=== PATIENT | female | born 1980 | race Caucasian/White ===

== ENCOUNTER 2017-04-30 16:42 | Emergency (ER) | payer OTHER, MEDICARE ==
[~2017-04-30] VITALS: Ht 170.2 cm; Wt 68.2 kg
[2017-04-30 16:52] VITALS: BP 128/72; PULSE 128; RESP 18; O2SAT 97
--- NOTE | 2017-04-30 17:44 | DRSVH ---
PROCEDURE: X-RAY LEFT KNEE, THREE VIEWS ([id number]) INDICATIONS: 37 year-old female with left knee pain after ground level fall yesterday. TECHNIQUE: 3 views of the knee were acquired. COMPARISON: None. FINDINGS: Bones: No fractures or dislocations. No suspicious bony lesions. Soft tissues: No joint effusion. No suspicious soft tissue calcifications. IMPRESSION: No acute bony injury to the left knee. Dictated by: Boo Cespedes M.D. on 04/30/2017 at 17:41 Approved by: Boo Cespedes M.D. on 04/30/2017 at 17:42
--- NOTE | 2017-04-30 21:03 | ED.REPORT ---
HPI-Extremity Problem Lower Date of Service Apr 30, 2017 ED Provider: Hari Cardenas PA-C Alie is a 29-year-old female with chief complaint of a fall. She reports that her left knee buckled last night causing her fall forward and strike her face against the ground. Complains of a popping and catching sensation and instability in her knee. Reports a history of MS. Admits to a mild headache. Denies loss of consciousness, vomiting, seizure, use of blood thinners, bleeding disorders, neck pain. Nursing Notes Stated Complaint: FALL, GROUND LEFT KNEE Chief Complaint: Multiple Trauma/Fall Nursing Notes Reviewed: Yes Allergies: Coded Allergies: No Known Allergies (Unverified , 04/30/17) General Time Seen by MD: 21:01 Chief Complaint Knee injury left Past Medical History Past Medical History MS Review of Systems Review of Systems Note: Negative unless stated otherwise in history of present illness Physical Exam General: Well appearing, well developed, well nourished, no acute distress. Left hip: Full range of motion, normal to inspection Left knee: Small abrasion over the patella with associated tenderness. No swelling, bruising noted. No medial or lateral joint line tenderness. Negative popliteal fossa mass or tenderness. No laxity noted with varus/valgus stress anterior or posterior drawer. Left foot/ankle: DP, PT pulses 2+ and noted to be regular rate and rhythm at approximately 96 bpm. Normal to inspection, nontender, full range of motion. Sensation and brisk capillary refill intact and distal phalanges. Head: Healing abrasions noted on bridge of nose and upper lip. Neck: Excellent range of motion. Eyes: No scleral icterus or injection. No discharge. Vision grossly intact. ENT: Voice clear, hearing grossly intact. Respiratory: No respiratory distress, no increased work of breathing. Speaks in complete sentences. Skin: Warm and dry. Neurological: Intelligent gait, otherwise Grossly nonfocal. Psychological: alert and oriented. Speech appropriate, linear and logical. Behavior appropriate. Initial Vital Signs Vital Signs (First) Date Time Temp Pulse Resp B/P Pulse Ox O2 Delivery O2 Flow Rate FiO2 04/30/17 16:52 37.2 128 18 128/72 97 Room Air Tachycardia Interpretation & Diagnostics X-Ray Interpretation Xray Interpretation: PROCEDURE: X-RAY LEFT KNEE, THREE VIEWS ([id number]) INDICATIONS: 37 year-old female with left knee pain after ground level fall yesterday. IMPRESSION: No acute bony injury to the left knee. Interpretation / Wet Read by: Interpret - Radiologist Re-Eval/Medical Decision Med Decision/Clinical Course 37-year-old female presents with chief complaint of her left knee giving out. This caused her to fall striking her face is ground. Denies loss of consciousness, vomiting, seizure use of blood thinners, bleeding disorders. She admits to a mild headache. Physical examination reveals an abraded left knee, without bruising or swelling. Patient has an antalgic gait. Negative medial or lateral joint line tenderness, tibial tuberosity tenderness, apprehension sign, patellar tenderness , popliteal fossa tenderness or mass. No laxity is noted. Sensation and circulation are intact distally. Patient has healing abrasions on the bridge of her nose and her upper lip. X-rays negative for fracture. I am reassured against fracture or a spontaneously reduced dislocation. At this point I feel that a soft tissue injury such as a meniscal tear is most likely. Head CT is deferred based on the Perkins head CT rule. She is stable and safe to be discharged home. Provided Francisco J wrap, advised her over-the- counter analgesia, orthopedic follow-up instructions. Provided emergent return precautions. Patient verbalizes understanding of and consents to the plan. Discharge & Departure Impression: Primary Impression: Soft tissue injury of left knee Disposition: Home Discharge Condition All VS Reviewed: Yes Condition: Stable Additional Instructions: Evaluation in the emergency department for left knee pain includes history, physical examination x-rays which are reassuring that you have not fractured or dislocated your left knee. I believe you are safe to be discharged home. We placed the knee in an Francisco J wrap here in the emergency department and this will provide gentle support. Elevate the knee is much as possible next few days to reduce swelling and pain. Ice the affected knee 2-3 times over the next 24 hours. The pain is best treated with 600 mg of ibuprofen (Advil, Motrin) every 6 hours , or 1000 mg of acetaminophen (Tylenol) every 6 hours. These drugs can be taken at the same time for more severe pain. I will provide you with a referral for orthopedic follow-up. Please contact them on Tuesday to arrange to be seen. Return to emergency from for any new or worsening symptoms including increasing pain, an inability to bend the knee or cold/numb foot. Referrals: George Wilson MD [facility] EDSupervising Provider for APC: Ruddy Wolfe MD copies to: George Wilson MD, Seth PA-C Apr 30, 2017 21:02
== END 2017-04-30 21:33 | disposition home or self-care (01) ==
LOC: SED 16:42
DX: S89.92XA Unspecified injury of left lower leg, initial encounter (principal); W01.198A Fall on same level from slipping, tripping and stumbling with subsequent striking against other object, initial encounter; Y93.89 Activity, other specified; Y92.89 Other specified places as the place of occurrence of the external cause; Y99.8 Other external cause status; G35 Multiple sclerosis